=== PATIENT | male | born 1990 | race African-American/Black ===

== ENCOUNTER 2019-03-01 19:26 | Emergency (ER) | payer MEDICAID ==
[~2019-03-01] VITALS: Ht 180.3 cm; Wt 100.0 kg
[2019-03-01] MEDS ORDERED: IBUPROFEN 600MG TABLET PO ONE (21:30)
[2019-03-01 23:47] VITALS: BP 136/76
== END 2019-03-01 23:50 | disposition home or self-care (01) ==
LOC: ER 19:26
DX: S50.02XA Contusion of left elbow, initial encounter (principal); R51 Headache; F12.10 Cannabis abuse, uncomplicated; F17.210 Nicotine dependence, cigarettes, uncomplicated; V43.52XA Car driver injured in collision with other type car in traffic accident, initial encounter; Y93.89 Activity, other specified; Y92.488 Other paved roadways as the place of occurrence of the external cause
CPT/HCPCS: 70450; 71045; 73080; 99284; Z7610